=== PATIENT | male | born 1950 | race Caucasian/White ===

== ENCOUNTER 2019-07-30 | Day surgery (SDC) | payer MEDICARE, OTHER ==
[~2019-07-30] MED LIST: DULOXETINE HCL40 MG; LOSARTAN POTASS50 MG PO; MACULAR HEALTH1 CAP PO; METOPROLOL TAR100 MG PO; SG ASA LOW81 M1 PO; TAMSULOSIN HCL0.4 MG PO; [UNRECOGNIZED DRUG - OTHER] PO
== END 2019-07-30 13:05 | disposition home or self-care (01) ==
PROC: 0DJD8ZZ Inspection of Lower Intestinal Tract, Via Natural or Artificial Opening Endoscopic (ICD-10-PCS; principal; 2019-07-30)
DX: Z12.11 Encounter for screening for malignant neoplasm of colon (principal); K57.30 Diverticulosis of large intestine without perforation or abscess without bleeding; I48.91 Unspecified atrial fibrillation; I10 Essential (primary) hypertension